=== PATIENT | female | born 1985 ===

== ENCOUNTER 2016-04-30 22:23 | Inpatient (IN) | payer SELFPAY ==
[~2016-04-30] VITALS: Ht 160 cm; Wt 95.3 kg
[2016-04-30 23:31] VITALS: BP 138/84
[2016-05-01] MEDS ORDERED: ACETAMINOPHEN 325 MG TABLET. PO PRN (00:30)
[2016-05-01] MEDS: IV NORMAL SALINE 1000ML BAG 1,000 ML IV SCH ×2 (00:53→09:46)
[2016-05-01] MEDS ORDERED: ONDANSETRON PF 4 MG/2 ML VIAL. IV PRN (01:00)
[2016-05-01] MEDS ORDERED: VANCOMYCIN 1 GM in IV NORMAL SALINE 250ML 250 ML IV ONE (02:00)
[2016-05-01] MEDS: VANCOMYCIN PER PHARMACY MC PRN ×2 (02:22→14:46)
[2016-05-01 03:00] VITALS: BP 108/59
[2016-05-01 05:03] LABS: BASO # 0.1 x10^3/uL (0.0-0.2); BASO % 1 % (0-3); EOS % 1 % (0-3); HEMATOCRIT 29.7 % (36.0-47.0); HEMOGLOBIN 9.8 g/dL (12.0-15.5); LYMPH % 11 % (24-48); MEAN CORPUSCULAR HEMOGLOBIN 28 pg (25-35); MEAN CORPUSCULAR HGB CONC 33 g/dL (31-37); MEAN CORPUSCULAR VOLUME 86 fL (79-100); MONO % 6 % (0-9); NEUT % 81 % (31-73); PLATELET COUNT 236 x10^3/uL (140-400); RED BLOOD COUNT 3.47 x10^6/uL (3.50-5.40); RED CELL DISTRIBUTION WIDTH 13.9 % (11.5-14.5); WHITE BLOOD COUNT 17.5 x10^3/uL (4.0-11.0)
[2016-05-01 05:16] LABS: CALCIUM 8.1 mg/dL (8.5-10.1); CREATININE 0.5 mg/dL (0.6-1.0); GFR 144.9; POTASSIUM 3.6 mmol/L (3.5-5.1)
[2016-05-01] MEDS ORDERED: CLINDAMYCIN 900MG PREMIX 50 ML IV SCH (06:00)
[2016-05-01 06:50] LABS: % EOS 2 % (0-5)
[2016-05-01 06:51] LABS: PLT ESTIMATE ADEQUATE (ADEQUATE)
[2016-05-01 07:05] VITALS: BP 119/62
--- NOTE | 2016-05-01 09:29 | PDOC1 ---
History and Physical Past Medical History Past Medical History cellulitis Past Surgical History Past Surgical History: Family History Family History unknown per pt Social History Smoke: No Drugs: Other (meth) Current Medications Current Medications Current Medications Medications (Trade) Dose Ordered Sig/Sarah Start Time Stop Time Status Last Admin Dose Admin Acetaminophen 650 mg 650 mg PRN Q6HRS PRN 05/01/16 00:30 Clindamycin Phosphate 50 ml @ 100 mls/hr Q8HRS 05/01/16 06:00 05/01/16 05:12 100 MLS/HR Diphenhydramine HCl 50 mg 50 mg PRN Q8HRS PRN 05/01/16 01:00 Ondansetron HCl (Zofran) 4 mg PRN Q6HRS PRN 05/01/16 01:00 Sodium Chloride (Iv Sodium Chloride 0.9% 1000ml Bag) 1,000 ml @ 75 mls/hr [id number] 05/01/16 01:00 05/01/16 00:53 75 MLS/HR Vancomycin HCl 1 each 1X ONCE 05/02/16 09:30 05/02/16 09:31 Vancomycin HCl 1 each 1 each PRN DAILY PRN 05/01/16 02:00 05/01/16 02:22 1 EACH Vancomycin HCl 1 gm/Sodium Chloride 250 ml @ 250 mls/hr ONCE ONCE 05/01/16 02:00 05/01/16 02:07 DC Vancomycin HCl/ Sodium Chloride (Iv Sodium Chloride 0.9% 250ml) 250 ml @ 250 mls/hr Q12H 05/01/16 10:00 UNV Vancomycin HCl/ Sodium Chloride (Iv Sodium Chloride 0.9% 500ml Bag) 500 ml @ 250 mls/hr Q12H 05/01/16 10:00 Allergies Allergies Allergies Coded Allergies Type Severity Reaction Last Updated Verified No Known Medication Allergies Allergy Unknown 05/01/16 Yes ROS Review of System CONSTITUTIONAL: No fever or chills EYES: No recent changes SKIN: LLE rash and pain CARDIOVASCULAR: No chest pain, syncope, palpitations, or edema RESPIRATORY: No SOB or cough GASTROINTESTINAL: No nausea, vomiting or abdominal pain NEUROLOGICAL: No headaches or weakness ENDOCRINE: No cold or heat intolerance GENITOURINARY: No urgency or frequency of urination MUSCULOSKELETAL: No back pain or joint pain LYMPHATICS: No enlarged lymph nodes PSYCHIATRIC: No anxiety or depression Physical Exam Physical Exam GEN.: No apparent distress. Alert and oriented. HEENT: Head is normocephalic, atraumatic NECK: Supple. no JVD LUNGS: Clear to auscultation. normal airflow HEART: RRR, S1, S2 present. Peripheral pulses intact ABDOMEN: Soft, nontender. Positive bowel sounds. EXTREMITIES: LLE rash with blisters on medial aspect of ankle and lower leg, NEUROLOGIC: Normal speech, normal tone PSYCHIATRIC: Normal affect, normal mood. SKIN: erythema and blisters on LLE, swelling. Vitals Vitals Vital Signs Date Time Temp Pulse Resp B/P Pulse Ox O2 Delivery O2 Flow Rate FiO2 05/01/16 07:05 98.1 94 18 119/62 99 Room Air 98.1 Labs Labs Laboratory Tests Test 05/01/16 04:45 White Blood Count 17.5x10^3/uL (4.0-11.0) Red Blood Count 3.47x10^6/uL (3.50-5.40) Hemoglobin 9.8g/dL (12.0-15.5) Hematocrit 29.7% (36.0-47.0) Mean Corpuscular Volume 86fL (79-100) Mean Corpuscular Hemoglobin 28pg (25-35) Mean Corpuscular Hemoglobin Concent 33g/dL (31-37) Red Cell Distribution Width 13.9% (11.5-14.5) Platelet Count 236x10^3/uL (140-400) Neutrophils (%) (Auto) 81% (31-73) Lymphocytes (%) (Auto) 11% (24-48) Monocytes (%) (Auto) 6% (0-9) Eosinophils (%) (Auto) 1% (0-3) Basophils (%) (Auto) 1% (0-3) Neutrophils # (Auto) 14.1x10^3uL (1.8-7.7) Lymphocytes # (Auto) 2.0x10^3/uL (1.0-4.8) Monocytes # (Auto) 1.0x10^3/uL (0.0-1.1) Eosinophils # (Auto) 0.3x10^3/uL (0.0-0.7) Basophils # (Auto) 0.1x10^3/uL (0.0-0.2) Segmented Neutrophils % 80% (35-66) Band Neutrophils % 7% (0-9) Lymphocytes % 9% (24-48) Monocytes % 2% (0-10) Eosinophils % 2% (0-5) Platelet Estimate Adequate (ADEQUATE) Erythrocyte Sedimentation Rate 67 (0-25) Sodium Level 139mmol/L (136-145) Potassium Level 3.6mmol/L (3.5-5.1) Chloride Level 105mmol/L (98-107) Carbon Dioxide Level 25mmol/L (21-32) Anion Gap 9 (6-14) Blood Urea Nitrogen 5mg/dL (7-20) Creatinine 0.5mg/dL (0.6-1.0) Estimated GFR (Cockcroft-Gault) 144.9 Glucose Level 91mg/dL (70-99) Calcium Level 8.1mg/dL (8.5-10.1) Laboratory Tests Test 05/01/16 04:45 White Blood Count 17.5x10^3/uL (4.0-11.0) Red Blood Count 3.47x10^6/uL (3.50-5.40) Hemoglobin 9.8g/dL (12.0-15.5) Hematocrit 29.7% (36.0-47.0) Mean Corpuscular Volume 86fL (79-100) Mean Corpuscular Hemoglobin 28pg (25-35) Mean Corpuscular Hemoglobin Concent 33g/dL (31-37) Red Cell Distribution Width 13.9% (11.5-14.5) Platelet Count 236x10^3/uL (140-400) Neutrophils (%) (Auto) 81% (31-73) Lymphocytes (%) (Auto) 11% (24-48) Monocytes (%) (Auto) 6% (0-9) Eosinophils (%) (Auto) 1% (0-3) Basophils (%) (Auto) 1% (0-3) Neutrophils # (Auto) 14.1x10^3uL (1.8-7.7) Lymphocytes # (Auto) 2.0x10^3/uL (1.0-4.8) Monocytes # (Auto) 1.0x10^3/uL (0.0-1.1) Eosinophils # (Auto) 0.3x10^3/uL (0.0-0.7) Basophils # (Auto) 0.1x10^3/uL (0.0-0.2) Segmented Neutrophils % 80% (35-66) Band Neutrophils % 7% (0-9) Lymphocytes % 9% (24-48) Monocytes % 2% (0-10) Eosinophils % 2% (0-5) Platelet Estimate Adequate (ADEQUATE) Erythrocyte Sedimentation Rate 67 (0-25) Sodium Level 139mmol/L (136-145) Potassium Level 3.6mmol/L (3.5-5.1) Chloride Level 105mmol/L (98-107) Carbon Dioxide Level 25mmol/L (21-32) Anion Gap 9 (6-14) Blood Urea Nitrogen 5mg/dL (7-20) Creatinine 0.5mg/dL (0.6-1.0) Estimated GFR (Cockcroft-Gault) 144.9 Glucose Level 91mg/dL (70-99) Calcium Level 8.1mg/dL (8.5-10.1) VTE Prophylaxis Ordered VTE Prophylaxis Devices: Yes VTE Pharmacological Prophylaxi: Yes ASAD SOLER MD May 01, 2016 09:29
[2016-05-01] MEDS: VANCOMYCIN 2 GM in IV NORMAL SALINE 500ML BAG 500 ML IV SCH ×2 (09:45→21:07)
--- NOTE | 2016-05-01 09:49 | PDOC ---
Infectious Disease Note Subjective Subjective Patient presents to [facility] after 1 week history of left LE cellulitis. She had been seen in [place] and was given a prescription for an antibiotic. She stated the infection was clearing up, but then 2 days ago it worsened. At the ED it was swollen, red and painful. I&D was performed and she was started on clindamycin and vanc. This morning she is resting comfortably in bed with her leg elevated. She denies fever, chills. ROS ROS GEN: Denies fevers, chills, sweats HEENT: Denies blurred vision, sore throat CV: Denies chest pain RESP: Denies shortness of air, cough GI: Denies n/v/d NEURO: Denies confusion, dizziness MSK: Denies weakness, joint pain/swelling Vital Sign Vital Signs Vital Signs Date Time Temp Pulse Resp B/P Pulse Ox O2 Delivery O2 Flow Rate FiO2 05/01/16 07:05 98.1 94 18 119/62 99 Room Air 98.1 Physical Exam PHYSICAL EXAM GENERAL: NAD, Alert HEENT: PERRL, OC/OP NECK: Supple, no JVD, no LN LUNGS: Clear HEART: S1S2, no gallop, no murmur ABD: Soft, NT, no organomegaly, no rebound EXT: L LE 2+ edema, erythematous, bandage over I&D site on knee - bloody drainage [employer]: Alert, oriented x 3, no focal neurologic deficit SKIN: erythema, edema over L LE IV: ok Labs Lab Laboratory Tests Test 05/01/16 04:45 White Blood Count 17.5x10^3/uL (4.0-11.0) Red Blood Count 3.47x10^6/uL (3.50-5.40) Hemoglobin 9.8g/dL (12.0-15.5) Hematocrit 29.7% (36.0-47.0) Mean Corpuscular Volume 86fL (79-100) Mean Corpuscular Hemoglobin 28pg (25-35) Mean Corpuscular Hemoglobin Concent 33g/dL (31-37) Red Cell Distribution Width 13.9% (11.5-14.5) Platelet Count 236x10^3/uL (140-400) Neutrophils (%) (Auto) 81% (31-73) Lymphocytes (%) (Auto) 11% (24-48) Monocytes (%) (Auto) 6% (0-9) Eosinophils (%) (Auto) 1% (0-3) Basophils (%) (Auto) 1% (0-3) Neutrophils # (Auto) 14.1x10^3uL (1.8-7.7) Lymphocytes # (Auto) 2.0x10^3/uL (1.0-4.8) Monocytes # (Auto) 1.0x10^3/uL (0.0-1.1) Eosinophils # (Auto) 0.3x10^3/uL (0.0-0.7) Basophils # (Auto) 0.1x10^3/uL (0.0-0.2) Segmented Neutrophils % 80% (35-66) Band Neutrophils % 7% (0-9) Lymphocytes % 9% (24-48) Monocytes % 2% (0-10) Eosinophils % 2% (0-5) Platelet Estimate Adequate (ADEQUATE) Erythrocyte Sedimentation Rate 67 (0-25) Sodium Level 139mmol/L (136-145) Potassium Level 3.6mmol/L (3.5-5.1) Chloride Level 105mmol/L (98-107) Carbon Dioxide Level 25mmol/L (21-32) Anion Gap 9 (6-14) Blood Urea Nitrogen 5mg/dL (7-20) Creatinine 0.5mg/dL (0.6-1.0) Estimated GFR (Cockcroft-Gault) 144.9 Glucose Level 91mg/dL (70-99) Calcium Level 8.1mg/dL (8.5-10.1) Objective Assessment Left lower extremity cellulitis Left knee abscess/patellar bursitis Leukocytosis Plan Plan of Care D/c clinda Cont vanc Add Unasyn Leg elevation MINH MANCUSO MD May 01, 2016 09:49
[2016-05-01] MEDS ORDERED: VANCOMYCIN 1 GM in IV NORMAL SALINE 250ML 250 ML IV SCH (10:00)
[2016-05-01 10:15] VITALS: BP 122/70
--- NOTE | 2016-05-01 10:39 | PDOC2 ---
CONSULT Date of Consult Date of Consult DATE: 05/01/16 TIME: 10:28 Reason for Consult Reason for Consult: with cellulitis Referring Physician Referring Physician: Dr. Jolly Identification/Chief Complaint Chief Complaint Leg swelling with redness Source Source: Chart review, Patient History of Present Illness Reason for Visit: 31 y/o @ 8wks by [facility] in [place]. She presented to ED a few days ago with leg swelling. She was treated as outpatient with abx for cellulitis. The swelling worsened with redness so patient returned to ED. Previous c/s x 4. No care. She denies any injury or trauma to her leg. Past Surgical History Past Surgical History: (x4) Social History <1 pack per day ALCOHOL: rare Drugs: Other (meth) Domestic Violence: Neg Current Medications Current Medications Current Medications Acetaminophen 650 mg 650 mg PRN Q6HRS PRN PO MILD PAIN / TEMP; Start 05/01/16 at 00:30 Clindamycin Phosphate 50 ml @ 100 mls/hr Q8HRS IV Last administered on 05:12; Start 05/01/16 at 06:00; Stop 05/01/16 at 09:49; Status DC Vancomycin HCl/ Sodium Chloride (Iv Sodium Chloride 0.9% 250ml) 250 ml @ 250 mls/hr Q12H IV ; Start 05/01/16 at 10:00; Status UNV Diphenhydramine HCl 50 mg 50 mg PRN Q8HRS PRN IVP ITCHING; Start 05/01/16 at 01 :00 Sodium Chloride (Iv Sodium Chloride 0.9% 1000ml Bag) 1,000 ml @ 75 mls/hr [id number] IV Last administered on 05/01/16 09:46; Start 05/01/16 at 01:00 Ondansetron HCl (Zofran) 4 mg PRN Q6HRS PRN IV NAUSEA/VOMITING; Start 05/01/16 at 01:00 Vancomycin HCl 1 each 1 each PRN DAILY PRN MC SEE COMMENTS Last administered on 05/01/16 02:22; Start 05/01/16 at 02:00 Vancomycin HCl 1 gm/Sodium Chloride 250 ml @ 250 mls/hr ONCE ONCE IV ; Start 05/01/16 at 02:00; Stop 05/01/16 at 02:07; Status DC Vancomycin HCl/ Sodium Chloride (Iv Sodium Chloride 0.9% 500ml Bag) 500 ml @ 250 mls/hr Q12H IV Last administered on 05/01/16t 09:45; Start 05/01/16 at 10: 00 Vancomycin HCl 1 each 1 each 1X ONCE MC ; Start 05/02/16 at 09:30; Stop at 09:31 Ampicillin Sodium/ Sulbactam Sodium/ Sodium Chloride (Unasyn/Iv Sodium Chloride 0.9% 100ml) 100 ml @ 200 mls/hr Q6HRS IV ; Start 05/01/16 at 11:00 Enoxaparin Sodium (Lovenox 40mg Syringe) 40 mg DAILY SQ ; Start 05/01/16 at 12: 00 Allergies Allergies: Coded Allergies: No Known Medication Allergies (Verified Allergy, Unknown, 05/01/16) ROS General: YES: Fatigue, No: Appetite, Chills, Malaise, Night Sweats, Other PSYCHOLOGICAL ROS: No: Anxiety, Behavioral Disorder, Concentration difficultie , Decreased libido, Depression, Disorientation, Hallucinations, Hostility, Irritablity, Memory difficulties, Mood Swings, Obsessive thoughts, Other, Physical abuse, Sexual abuse, Sleep disturbances, Suicidal ideation Eyes: No Blurry vision, No Decreased vision, No Double vision, No Dry eyes, No Excessive tearing, No Eye Pain, No Itchy Eyes, No Loss of vision, No Other, No Photophobia, No Scotomata, No Uses contacts, No Uses glasses HEENT: No: Epistaxis, Heacaches, Hearing change, Nasal congestion, Nasal discharge, Oral lesions, Other, Sinus pain, Sneezing, Snoring, Sore Throat, Tinnitus, Vertigo, Visual Changes, Vocal changes ALLERGY AND IMMUNOLOGY: No: Hives, Insect Bite Sensitivity, Itchy/Watery Eyes, Nasal Congestion, Other, Post Nasal Drip, Seasonal Allergies Hematological and Lymphatic: No: Bleeding Problems, Blood Clots, Blood Transfusions, Brusing, Night Sweats, Other, Pallor, Swollen Lymph Nodes ENDOCRINE: No: Breast Changes, Galactorrhea, Hair Pattern Changes, Hot Flashes , Malaise/lethargy, Mood Swings, Other, Palpitations, Polydipsia/polyuria, Skin Changes, Temperature Intolerance, Unexpected Weight Changes Breast: No New/Changing Breast Lumps, No Nipple changes, No Nipple discharge, No Other Respiratory: No: Cough, Hemoptysis, Orthopnea, Other, Pleuritic Pain, SOB with excertion, Shortness of breath, Sputum Changes, Stridor, Tachypnea, Wheezing Cardiovascular: No Chest Pain, No Edema, No Lt Headedness, No Orthopnea, No Other, No Palpitations, No Paroxysmal Noc. Dyspnea Gastrointestinal: No Abdominal Pain, No Constipation, No Diarrhea, No Hematochezia, No Melena, No Nausea, No Other, No Vomiting Genitourinary: No , No , No , No , No , No , No , No Discharge, No Dysuria, No Flank Pain, No Frequency, No Hematuria, No Incontinence, No Other, No Pain, No Retention, No Urgency Musculoskeletal: Yes Gait Disturbance, Yes Swelling In: (Left lower leg and knee) Physical Exam General: Alert, Oriented X3, Cooperative HEENT: Atraumatic Lungs: Clear to auscultation Heart: Regular rate Abdomen: Normal bowel sounds, Soft, No tenderness, No masses Extremities: Other (Severe edema with evidence of cellulitis in Left lower leg. Left knee with I&D by ED physician with bandage in place. Erythema demarcated above calf but below knee. Right knee and leg normal.) Vitals VITALS Vital Signs Date Time Temp Pulse Resp B/P Pulse Ox O2 Delivery O2 Flow Rate FiO2 05/01/16 07:05 98.1 94 18 119/62 99 Room Air 98.1 Labs Labs Laboratory Tests Test 05/01/16 04:45 White Blood Count 17.5x10^3/uL (4.0-11.0) Red Blood Count 3.47x10^6/uL (3.50-5.40) Hemoglobin 9.8g/dL (12.0-15.5) Hematocrit 29.7% (36.0-47.0) Mean Corpuscular Volume 86fL (79-100) Mean Corpuscular Hemoglobin 28pg (25-35) Mean Corpuscular Hemoglobin Concent 33g/dL (31-37) Red Cell Distribution Width 13.9% (11.5-14.5) Platelet Count 236x10^3/uL (140-400) Neutrophils (%) (Auto) 81% (31-73) Lymphocytes (%) (Auto) 11% (24-48) Monocytes (%) (Auto) 6% (0-9) Eosinophils (%) (Auto) 1% (0-3) Basophils (%) (Auto) 1% (0-3) Neutrophils # (Auto) 14.1x10^3uL (1.8-7.7) Lymphocytes # (Auto) 2.0x10^3/uL (1.0-4.8) Monocytes # (Auto) 1.0x10^3/uL (0.0-1.1) Eosinophils # (Auto) 0.3x10^3/uL (0.0-0.7) Basophils # (Auto) 0.1x10^3/uL (0.0-0.2) Segmented Neutrophils % 80% (35-66) Band Neutrophils % 7% (0-9) Lymphocytes % 9% (24-48) Monocytes % 2% (0-10) Eosinophils % 2% (0-5) Platelet Estimate Adequate (ADEQUATE) Erythrocyte Sedimentation Rate 67 (0-25) Sodium Level 139mmol/L (136-145) Potassium Level 3.6mmol/L (3.5-5.1) Chloride Level 105mmol/L (98-107) Carbon Dioxide Level 25mmol/L (21-32) Anion Gap 9 (6-14) Blood Urea Nitrogen 5mg/dL (7-20) Creatinine 0.5mg/dL (0.6-1.0) Estimated GFR (Cockcroft-Gault) 144.9 Glucose Level 91mg/dL (70-99) Calcium Level 8.1mg/dL (8.5-10.1) Laboratory Tests Test 05/01/16 04:45 White Blood Count 17.5x10^3/uL (4.0-11.0) Red Blood Count 3.47x10^6/uL (3.50-5.40) Hemoglobin 9.8g/dL (12.0-15.5) Hematocrit 29.7% (36.0-47.0) Mean Corpuscular Volume 86fL (79-100) Mean Corpuscular Hemoglobin 28pg (25-35) Mean Corpuscular Hemoglobin Concent 33g/dL (31-37) Red Cell Distribution Width 13.9% (11.5-14.5) Platelet Count 236x10^3/uL (140-400) Neutrophils (%) (Auto) 81% (31-73) Lymphocytes (%) (Auto) 11% (24-48) Monocytes (%) (Auto) 6% (0-9) Eosinophils (%) (Auto) 1% (0-3) Basophils (%) (Auto) 1% (0-3) Neutrophils # (Auto) 14.1x10^3uL (1.8-7.7) Lymphocytes # (Auto) 2.0x10^3/uL (1.0-4.8) Monocytes # (Auto) 1.0x10^3/uL (0.0-1.1) Eosinophils # (Auto) 0.3x10^3/uL (0.0-0.7) Basophils # (Auto) 0.1x10^3/uL (0.0-0.2) Segmented Neutrophils % 80% (35-66) Band Neutrophils % 7% (0-9) Lymphocytes % 9% (24-48) Monocytes % 2% (0-10) Eosinophils % 2% (0-5) Platelet Estimate Adequate (ADEQUATE) Erythrocyte Sedimentation Rate 67 (0-25) Sodium Level 139mmol/L (136-145) Potassium Level 3.6mmol/L (3.5-5.1) Chloride Level 105mmol/L (98-107) Carbon Dioxide Level 25mmol/L (21-32) Anion Gap 9 (6-14) Blood Urea Nitrogen 5mg/dL (7-20) Creatinine 0.5mg/dL (0.6-1.0) Estimated GFR (Cockcroft-Gault) 144.9 Glucose Level 91mg/dL (70-99) Calcium Level 8.1mg/dL (8.5-10.1) Assessment/Plan Assessment/Plan A: 8wks IUP Left lower leg cellulitis P: Continue IV abx as benefit greater than risk to . Recommend surgery and vascular consultation. Recommend doppler evaluation for blood flow and rule out DVT. Will continue to follow. HEIDE MCCORMACK Jr, MD May 01, 2016 10:39
--- NOTE | 2016-05-01 10:39 | HP ---
ADMIT DATE: 05/01/2016 CHIEF COMPLAINT: Left lower extremity rash, pain and swelling. HISTORY OF PRESENT ILLNESS: A 31-year-old female with history of substance abuse (meth) presented to the [facility] with complaints of left lower extremity cellulitis, worsening pain and increased redness. Reportedly, the patient was treated with antibiotics 1 week ago, the patient did not recall the antibiotic's name, she says its name starts with C. However, her symptoms did not improve, the redness and swelling is gradually getting worse. She was evaluated at [facility] and she had a left lower extremity knee I and D as per the patient and later the patient has been transferred to [facility] for further consultation and antibiotics. At the time of my examination this morning, the patient complains of left lower extremity pain and redness that started from the feet to below knee with blister formation in the medial aspect of the left lower extremity. She denies any fever or chills or sick contacts. She did have some breakdowns of skin under both sides of the feet. She denies any IV drug abuse. She denies any surgeries on her lower extremities in the past. PAST MEDICAL HISTORY: Please see my electronic H and P. REVIEW OF SYSTEMS: Please see my electronic H and P. PHYSICAL EXAMINATION: Please see my electronic H and P. LABORATORY FINDINGS: WBC 17.5, hemoglobin is 9.8, MCV 86, platelets 236. ESR is 67. Chemistry: Sodium is 139, potassium 3.6, chloride 105, carbon dioxide 25, anion gap 9, BUN 5, creatinine 0.5, EGFR 144. IMAGING STUDIES: Reviewed from [facility], ultrasound, lower extremity Doppler negative. ASSESSMENT: Severe left lower extremity cellulitis with blistering formation, leukocytosis, elevated ESR and CRP. PLAN: 1. Currently this patient is on vancomycin and clindamycin. Pharmacy to dose the vancomycin, renal dosing. 2. Monitor white blood count. 3. Pain control with hydrocodone and Tylenol. 4. Infectious Disease has been consulted. 5. Follow cultures from [facility]. 6. Antibiotics have been adjusted by Infectious Disease and Unasyn has been added today. 7. Deep venous thrombosis prophylaxis with Lovenox. 8. Prognosis, guarded. ASAD SOLER MD DR: NEYMAR/sherry JOB#: [id number] / [id number]
[2016-05-01] MEDS: ASPIRIN ENTERIC COATED 81 MG TABLET.DR. PO SCH (11:32)
[2016-05-01] MEDS: DO NOT USE 40 MG/0.4 ML DISP.SYRIN SQ SCH (11:32)
[2016-05-01] MEDS: AMPICILLIN/SULBACTAM 3 GM in IV NORMAL SALINE 100ML 100 ML IV SCH ×2 (11:32→17:38)
--- NOTE | 2016-05-01 12:15 | RAD ---
EXAM: Left lower extremity venous Doppler sonogram. HISTORY: Swelling. TECHNIQUE: Grayscale and color Doppler sonographic imaging of the left lower extremity veins with spectral waveform analysis was performed. COMPARISON: None. FINDINGS: There is catheter edema possibly due to cellulitis. The peroneal veins are obscured. There is normal color flow, normal compressibility and there are normal spectral waveforms within the remainder of the left lower 70 veins. There are prominent lymph nodes within the right inguinal region, likely reactive given a history of a left knee abscess. IMPRESSION: Obscured peroneal veins due to calf edema. There is no evidence of venous thrombosis within the remainder of the left lower extremity veins.
--- NOTE | 2016-05-01 12:15 | RAD ---
EXAM: Left lower extremity arterial Doppler sonogram. HISTORY: Swelling and pain. TECHNIQUE: Grayscale and color Doppler sonographic imaging of the left lower 70 arteries with spectral waveform analysis was performed. COMPARISON: None. FINDINGS: There is an elevated peak systolic velocity of 269 cm/s within the right common femoral artery, suggesting hemodynamically significant stenosis. There are monophasic waveforms distal to the common femoral artery from the proximal superficial femoral artery to the dorsalis pedis artery, likely due to proximal stenosis. The peak systolic velocities distal to the common femoral artery measure 66 cm/s within the deep femoral artery, 182 cm/s within the proximal superficial femoral artery, 156 cm/s within the mid superficial femoral artery, 142 cm/s within the distal superficial femoral artery, 171 cm/s within the popliteal artery, 147 cm/s within the posterior tibial artery, 80 cm/s within the anterior tibial artery, and 115 cm/s within the dorsalis pedis artery. The peroneal artery is not seen. IMPRESSION: 1. Elevated peak systolic velocity within the left common femoral artery suggesting hemodynamically significant stenosis. There are corresponding monophasic waveforms distal to this vessel from the proximal superficial femoral artery to the dorsalis pedis artery. 2. Nonvisualization of the peroneal artery. This may be due to study limitations in the setting of surrounding soft tissue edema or vessel occlusion.
[2016-05-01 14:20] VITALS: BP 118/73
[2016-05-01 19:00] VITALS: BP 129/68
[2016-05-01] MEDS: DIPHENHYDRAMINE 50 MG/ML VIAL IVP PRN (21:08)
[2016-05-01 23:00] VITALS: BP 142/61
[2016-05-02] MEDS: AMPICILLIN/SULBACTAM 3 GM in IV NORMAL SALINE 100ML 100 ML IV SCH ×2 (00:25→05:20)
[2016-05-02] MEDS: IV NORMAL SALINE 1000ML BAG 1,000 ML IV SCH (01:36)
[2016-05-02 07:00] VITALS: BP 126/71
--- NOTE | 2016-05-02 07:56 | PDOC ---
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 Pharmacy to dose vancomycin, renal dosing OBEGYN following. Vascular surgery consulted Pain control with IV morphine labs reviewed Avoid co2 narcosis. History of Present Illness History of Present Illness pain better no fever no chills rash worse Vitals Vitals Vital Signs Date Time Temp Pulse Resp B/P Pulse Ox O2 Delivery O2 Flow Rate FiO2 05/02/16 07:00 98.4 103 18 126/71 97 Room Air 98.4 Physical Exam General: Alert, Oriented X3, Cooperative Heart: Regular rate, Normal S1, Normal S2 Abdomen: Normal bowel sounds, Soft, No tenderness, No masses Extremities: Other (Severe edema with evidence of cellulitis in Left lower leg. Left knee with I&D by ED physician with bandage in place. Erythema demarcated above calf but below knee. Right knee and leg normal.) Comment Review of Relevant I have reviewed the following items toby (where applicable) has been applied. Labs Laboratory Tests Test 05/01/16 04:45 White Blood Count 17.5x10^3/uL (4.0-11.0) Red Blood Count 3.47x10^6/uL (3.50-5.40) Hemoglobin 9.8g/dL (12.0-15.5) Hematocrit 29.7% (36.0-47.0) Mean Corpuscular Volume 86fL (79-100) Mean Corpuscular Hemoglobin 28pg (25-35) Mean Corpuscular Hemoglobin Concent 33g/dL (31-37) Red Cell Distribution Width 13.9% (11.5-14.5) Platelet Count 236x10^3/uL (140-400) Neutrophils (%) (Auto) 81% (31-73) Lymphocytes (%) (Auto) 11% (24-48) Monocytes (%) (Auto) 6% (0-9) Eosinophils (%) (Auto) 1% (0-3) Basophils (%) (Auto) 1% (0-3) Neutrophils # (Auto) 14.1x10^3uL (1.8-7.7) Lymphocytes # (Auto) 2.0x10^3/uL (1.0-4.8) Monocytes # (Auto) 1.0x10^3/uL (0.0-1.1) Eosinophils # (Auto) 0.3x10^3/uL (0.0-0.7) Basophils # (Auto) 0.1x10^3/uL (0.0-0.2) Segmented Neutrophils % 80% (35-66) Band Neutrophils % 7% (0-9) Lymphocytes % 9% (24-48) Monocytes % 2% (0-10) Eosinophils % 2% (0-5) Platelet Estimate Adequate (ADEQUATE) Erythrocyte Sedimentation Rate 67 (0-25) Sodium Level 139mmol/L (136-145) Potassium Level 3.6mmol/L (3.5-5.1) Chloride Level 105mmol/L (98-107) Carbon Dioxide Level 25mmol/L (21-32) Anion Gap 9 (6-14) Blood Urea Nitrogen 5mg/dL (7-20) Creatinine 0.5mg/dL (0.6-1.0) Estimated GFR (Cockcroft-Gault) 144.9 Glucose Level 91mg/dL (70-99) Calcium Level 8.1mg/dL (8.5-10.1) Medications Current Medications Acetaminophen 650 mg 650 mg PRN Q6HRS PRN PO MILD PAIN / TEMP; Start 05/01/16 at 00:30 Clindamycin Phosphate 50 ml @ 100 mls/hr Q8HRS IV Last administered on 05:12; Start 05/01/16 at 06:00; Stop 05/01/16 at 09:49; Status DC Vancomycin HCl/ Sodium Chloride (Iv Sodium Chloride 0.9% 250ml) 250 ml @ 250 mls/hr Q12H IV ; Start 05/01/16 at 10:00; Status UNV Diphenhydramine HCl 50 mg 50 mg PRN Q8HRS PRN IVP ITCHING Last administered on 05/01/16 21:08; Start 05/01/16 at 01:00 Sodium Chloride (Iv Sodium Chloride 0.9% 1000ml Bag) 1,000 ml @ 75 mls/hr [id number] IV Last administered on 05/02/16 01:36; Start 05/01/16 at 01:00 Ondansetron HCl (Zofran) 4 mg PRN Q6HRS PRN IV NAUSEA/VOMITING; Start 05/01/16 at 01:00 Vancomycin HCl 1 each 1 each PRN DAILY PRN MC SEE COMMENTS Last administered on 05/01/16 14:46; Start 05/01/16 at 02:00 Vancomycin HCl 1 gm/Sodium Chloride 250 ml @ 250 mls/hr ONCE ONCE IV ; Start 05/01/16 at 02:00; Stop 05/01/16 at 02:07; Status DC Vancomycin HCl/ Sodium Chloride (Iv Sodium Chloride 0.9% 500ml Bag) 500 ml @ 250 mls/hr Q12H IV Last administered on 05/01/16 21:07; Start 05/01/16 at 10: 00 Vancomycin HCl 1 each 1 each 1X ONCE MC ; Start 05/02/16 at 09:30; Stop at 09:31 Ampicillin Sodium/ Sulbactam Sodium/ Sodium Chloride (Unasyn/Iv Sodium Chloride 0.9% 100ml) 100 ml @ 200 mls/hr Q6HRS IV Last administered on 05/02/16 05:20 ; Start 05/01/16 at 11:00 Enoxaparin Sodium (Lovenox 40mg Syringe) 40 mg DAILY SQ Last administered on 11:32; Start 05/01/16 at 12:00 Aspirin (Ecotrin) 81 mg [id number] PO Last administered on 05/01/16 11:32; Start 05/01/16 at 12:00 Vitals/I & O Vital Sign - Last 24 Hours 05/01/16 05/01/16 05/01/16 05/01/16 08:00 10:15 14:20 19:00 Temp 97.3 98.5 99.1 97.3 98.5 99.1 Pulse 98 99 105 Resp 18 18 18 B/P 122/70 118/73 129/68 Pulse Ox 100 100 97 O2 Delivery Room Air Room Air Room Air Room Air 05/01/16 05/01/16 05/02/16 05/02/16 20:00 23:00 01:00 07:00 Temp 99.9 97.7 98.4 99.9 97.7 98.4 Pulse 109 103 Resp 18 18 B/P 142/61 126/71 Pulse Ox 97 97 O2 Delivery Room Air Room Air Room Air Intake and Output 05/01/16 05/01/16 05/02/16 15:00 23:00 07:00 Intake Total 780 ml 280 ml 360 ml Balance 780 ml 280 ml 360 ml ASAD SOLER MD May 02, 2016 07:56
--- NOTE | 2016-05-02 09:37 | PDOC ---
Infectious Disease Note Subjective Subjective feeling ok ROS ROS GEN: Denies fevers, chills, sweats HEENT: Denies blurred vision, sore throat CV: Denies chest pain RESP: Denies shortness of air, cough GI: Denies n/v/d NEURO: Denies confusion, dizziness MSK: Denies weakness, joint pain/swelling Vital Sign Vital Signs Vital Signs Date Time Temp Pulse Resp B/P Pulse Ox O2 Delivery O2 Flow Rate FiO2 05/02/16 07:00 98.4 103 18 126/71 97 Room Air 98.4 Physical Exam PHYSICAL EXAM GENERAL: NAD, Alert HEENT: PERRL, OC/OP NECK: Supple, no JVD, no LN LUNGS: Clear HEART: S1S2, no gallop, no murmur ABD: Soft, NT, no organomegaly, no rebound EXT: No edema, no cyanosis , left leg red and swollen [employer] MUD ANALYSIS: Alert, oriented x 3, no focal neurologic deficit SKIN: No rash IV: ok Objective Assessment Left lower extremity cellulitis Left knee abscess/patellar bursitis Leukocytosis Plan Plan of Care Cont vanc change unasyn to zosyn Leg elevation MINH MANCUSO MD May 02, 2016 09:37
[2016-05-02] MEDS: DO NOT USE 40 MG/0.4 ML DISP.SYRIN SQ SCH (09:53)
[2016-05-02] MEDS: ASPIRIN ENTERIC COATED 81 MG TABLET.DR. PO SCH (09:53)
[2016-05-02 10:17] LABS: BASO # 0.1 x10^3/uL (0.0-0.2); BASO % 0 % (0-3); EOS % 1 % (0-3); HEMATOCRIT 32.4 % (36.0-47.0); LYMPH # 1.8 x10^3/uL (1.0-4.8); LYMPH % 7 % (24-48); MEAN CORPUSCULAR HEMOGLOBIN 28 pg (25-35); MEAN CORPUSCULAR HGB CONC 34 g/dL (31-37); MEAN CORPUSCULAR VOLUME 84 fL (79-100); MONO % 4 % (0-9); NEUT % 88 % (31-73); PLATELET COUNT 279 x10^3/uL (140-400); RED BLOOD COUNT 3.87 x10^6/uL (3.50-5.40); RED CELL DISTRIBUTION WIDTH 13.7 % (11.5-14.5); WHITE BLOOD COUNT 26.4 x10^3/uL (4.0-11.0)
[2016-05-02 10:24] LABS: CALCIUM 8.1 mg/dL (8.5-10.1); CREATININE 0.7 mg/dL (0.6-1.0); GFR 98.3; POTASSIUM 3.7 mmol/L (3.5-5.1)
[2016-05-02] MEDS: VANCOMYCIN PER PHARMACY MC PRN (10:40)
[2016-05-02] MEDS ORDERED: VANCOMYCIN 1.75 GM in IV NORMAL SALINE 500ML BAG 500 ML IV SCH (11:00)
[2016-05-02 11:08] VITALS: BP 121/64
[2016-05-02] MEDS: PIPERACILLIN/TAZOBACTAM 3.375 GM in IV NORMAL SALINE 50ML 50 ML IV SCH ×2 (11:54→17:29)
--- NOTE | 2016-05-02 12:19 | PDOC ---
SURGICAL PROGRESS NOTE Subjective Pt. reports rash worsening on leg and chest area. No CP, SOB, abd pain, vaginal bleeding, chills or fever. Discussed findings from doppler studies and consultation of general surgery and vascular surgery. Vital Signs Vital Signs Date Time Temp Pulse Resp B/P Pulse Ox O2 Delivery O2 Flow Rate FiO2 05/02/16 11:08 97.7 113 18 121/64 100 Room Air 97.7 I&O Intake and Output 05/02/16 07:00 Intake Total 1420 ml Balance 1420 ml Intake Oral 720 ml IV Total 700 ml # Voids 5 PATIENT HAS A MISTRY: No General: Alert, Oriented X3, Cooperative HEENT: Atraumatic Lungs: Clear to auscultation Heart: Regular rate Abdomen: Normal bowel sounds, Soft, No tenderness, No masses Extremities: Other (Severe Left lower leg edema, cellulitis with exudate. Right lower extremity with +1 edema blotchy erythema on foot. Pulses palpable in Right lower extremity.) Psych/Mental Status: Mental status NL Labs Laboratory Tests Test 05/01/16 04:45 05/02/16 10:00 White Blood Count 17.5x10^3/uL (4.0-11.0) 26.4x10^3/uL (4.0-11.0) Red Blood Count 3.47x10^6/uL (3.50-5.40) 3.87x10^6/uL (3.50-5.40) Hemoglobin 9.8g/dL (12.0-15.5) 11.0g/dL (12.0-15.5) Hematocrit 29.7% (36.0-47.0) 32.4% (36.0-47.0) Mean Corpuscular Volume 86fL (79-100) 84fL (79-100) Mean Corpuscular Hemoglobin 28pg (25-35) 28pg (25-35) Mean Corpuscular Hemoglobin Concent 33g/dL (31-37) 34g/dL (31-37) Red Cell Distribution Width 13.9% (11.5-14.5) 13.7% (11.5-14.5) Platelet Count 236x10^3/uL (140-400) 279x10^3/uL (140-400) Neutrophils (%) (Auto) 81% (31-73) 88% (31-73) Lymphocytes (%) (Auto) 11% (24-48) 7% (24-48) Monocytes (%) (Auto) 6% (0-9) 4% (0-9) Eosinophils (%) (Auto) 1% (0-3) 1% (0-3) Basophils (%) (Auto) 1% (0-3) 0% (0-3) Neutrophils # (Auto) 14.1x10^3uL (1.8-7.7) 23.2x10^3uL (1.8-7.7) Lymphocytes # (Auto) 2.0x10^3/uL (1.0-4.8) 1.8x10^3/uL (1.0-4.8) Monocytes # (Auto) 1.0x10^3/uL (0.0-1.1) 1.0x10^3/uL (0.0-1.1) Eosinophils # (Auto) 0.3x10^3/uL (0.0-0.7) 0.3x10^3/uL (0.0-0.7) Basophils # (Auto) 0.1x10^3/uL (0.0-0.2) 0.1x10^3/uL (0.0-0.2) Segmented Neutrophils % 80% (35-66) Band Neutrophils % 7% (0-9) Lymphocytes % 9% (24-48) Monocytes % 2% (0-10) Eosinophils % 2% (0-5) Platelet Estimate Adequate (ADEQUATE) Erythrocyte Sedimentation Rate 67 (0-25) Sodium Level 139mmol/L (136-145) 137mmol/L (136-145) Potassium Level 3.6mmol/L (3.5-5.1) 3.7mmol/L (3.5-5.1) Chloride Level 105mmol/L (98-107) 105mmol/L (98-107) Carbon Dioxide Level 25mmol/L (21-32) 22mmol/L (21-32) Anion Gap 9 (6-14) 10 (6-14) Blood Urea Nitrogen 5mg/dL (7-20) 4mg/dL (7-20) Creatinine 0.5mg/dL (0.6-1.0) 0.7mg/dL (0.6-1.0) Estimated GFR (Cockcroft-Gault) 144.9 98.3 Glucose Level 91mg/dL (70-99) 123mg/dL (70-99) Calcium Level 8.1mg/dL (8.5-10.1) 8.1mg/dL (8.5-10.1) Vancomycin Level Trough 6.5mcg/mL (10.0-20.0) Vancomycin Last Dose Date 05/01/16 Vancomycin Last Dose Time 2200 Laboratory Tests Test 05/02/16 10:00 White Blood Count 26.4x10^3/uL (4.0-11.0) Red Blood Count 3.87x10^6/uL (3.50-5.40) Hemoglobin 11.0g/dL (12.0-15.5) Hematocrit 32.4% (36.0-47.0) Mean Corpuscular Volume 84fL (79-100) Mean Corpuscular Hemoglobin 28pg (25-35) Mean Corpuscular Hemoglobin Concent 34g/dL (31-37) Red Cell Distribution Width 13.7% (11.5-14.5) Platelet Count 279x10^3/uL (140-400) Neutrophils (%) (Auto) 88% (31-73) Lymphocytes (%) (Auto) 7% (24-48) Monocytes (%) (Auto) 4% (0-9) Eosinophils (%) (Auto) 1% (0-3) Basophils (%) (Auto) 0% (0-3) Neutrophils # (Auto) 23.2x10^3uL (1.8-7.7) Lymphocytes # (Auto) 1.8x10^3/uL (1.0-4.8) Monocytes # (Auto) 1.0x10^3/uL (0.0-1.1) Eosinophils # (Auto) 0.3x10^3/uL (0.0-0.7) Basophils # (Auto) 0.1x10^3/uL (0.0-0.2) Sodium Level 137mmol/L (136-145) Potassium Level 3.7mmol/L (3.5-5.1) Chloride Level 105mmol/L (98-107) Carbon Dioxide Level 22mmol/L (21-32) Anion Gap 10 (6-14) Blood Urea Nitrogen 4mg/dL (7-20) Creatinine 0.7mg/dL (0.6-1.0) Estimated GFR (Cockcroft-Gault) 98.3 Glucose Level 123mg/dL (70-99) Calcium Level 8.1mg/dL (8.5-10.1) Vancomycin Level Trough 6.5mcg/mL (10.0-20.0) Vancomycin Last Dose Date 05/01/16 Vancomycin Last Dose Time 2200 Assessment/Plan A: 8 wks IUP Left lower leg severe cellulitis Femoral arter stenosis P: Will continue to follow. Continue abx. Awaiting vascular and general surgery evaluation. Problems: HEIDE MCCORMACK Jr, MD May 02, 2016 12:19
[2016-05-02 12:25] LABS: % EOS 3 % (0-5); PLT ESTIMATE ADEQUATE (ADEQUATE)
--- NOTE | 2016-05-02 14:01 | PDOC2 ---
KATALINA ANGEL ACADEMIC INTERN 05/02/16 1401: CONSULT Date of Consult Date of Consult DATE: 05/02/16 TIME: 10:00 Reason for Consult Reason for Consult: Left lower extremity cellulitis Referring Physician Referring Physician: Tennille Chakraborty M.D. Identification/Chief Complaint Chief Complaint Left leg pain and cellulitis Source Source: Chart review, Patient History of Present Illness Reason for Visit: This is a 31-year-old female who presented to [facility] emergency room a little over 1 week ago with complaint of redness, swelling and pain to her left lower extremity. The patient reports that she was placed on an oral antibiotic and released. Initially, the redness did slightly improve for a few days but returned and rapidly worsened. She returned to [facility] ER and an ultrasound of the knee was performed where a collection of fluid was noted and felt to be abscess. The emergency room performed an I&D of the left knee and then the patient was transferred to [facility] for further evaluation and treatment. The patient has been seen by Infectious Disease and IV antibiotic therapy has been initiated. The patient denies injury or trauma to her left foot,knee or leg. She reports no known allergies of medications and does not take any routine medications, denies having been ill recently or around anyone who has been sick, has not traveled recently and does not work outside the home. She just found out she is 8 weeks when evaluated in the ER at [facility]. 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 She denies any symptoms of lower extremity claudication-like symptoms prior to the onset of this recent left leg pain due to cellulitis. Vascular Surgery has been consulted to evaluate for the possibility of peripheral vascular disease in association with cellulitis. Past Medical History Past Medical History 1. Tobacco abuse, current. 2. . Past Surgical History Past Surgical History 1. section x4. 2. Left knee I&D. 3. Multiple teeth extractions for poor dentation. Family History Family History Non-contributory. Social History Social History 1. Smokes approximately half-pack per day of cigarettes. 2. History of IV drug abuse with Meth - last use 1 year ago. 3. Rare consumption of alcohol. 4. and lives with her and 4 children. is supportive and just started a new job with [employer]. 5. Does not work outside the home. Current Problem List Problem List Cellulitis of the left lower extremity. Rash Current Medications Current Medications Current Medications Acetaminophen 650 mg 650 mg PRN Q6HRS PRN PO MILD PAIN / TEMP; Start 05/01/16 at 00:30 Clindamycin Phosphate 50 ml @ 100 mls/hr Q8HRS IV Last administered on 05:12; Start 05/01/16 at 06:00; Stop 05/01/16 at 09:49; Status DC Vancomycin HCl/ Sodium Chloride (Iv Sodium Chloride 0.9% 250ml) 250 ml @ 250 mls/hr Q12H IV ; Start 05/01/16 at 10:00; Status UNV Diphenhydramine HCl 50 mg 50 mg PRN Q8HRS PRN IVP ITCHING Last administered on 05/01/16 21:08; Start 05/01/16 at 01:00 Sodium Chloride (Iv Sodium Chloride 0.9% 1000ml Bag) 1,000 ml @ 75 mls/hr [id number] IV Last administered on 05/02/16 01:36; Start 05/01/16 at 01:00 Ondansetron HCl (Zofran) 4 mg PRN Q6HRS PRN IV NAUSEA/VOMITING; Start 05/01/16 at 01:00 Vancomycin HCl 1 each 1 each PRN DAILY PRN MC SEE COMMENTS Last administered on 05/02/16 10:40; Start 05/01/16 at 02:00 Vancomycin HCl 1 gm/Sodium Chloride 250 ml @ 250 mls/hr ONCE ONCE IV ; Start 05/01/16 at 02:00; Stop 05/01/16 at 02:07; Status DC Vancomycin HCl/ Sodium Chloride (Iv Sodium Chloride 0.9% 500ml Bag) 500 ml @ 250 mls/hr Q12H IV Last administered on 05/01/16 21:07; Start 05/01/16 at 10: 00; Stop 05/02/16 at 10:39; Status DC Vancomycin HCl 1 each 1 each 1X ONCE MC Last administered on 05/02/16 09:30; Start 05/02/16 at 09:30; Stop 05/02/16 at 09:31; Status DC Ampicillin Sodium/ Sulbactam Sodium/ Sodium Chloride (Unasyn/Iv Sodium Chloride 0.9% 100ml) 100 ml @ 200 mls/hr Q6HRS IV Last administered on 05/02/16 05:20 ; Start 05/01/16 at 11:00; Stop 05/02/16 at 09:38; Status DC Enoxaparin Sodium (Lovenox 40mg Syringe) 40 mg DAILY SQ Last administered on 09:53; Start 05/01/16 at 12:00 Aspirin 81 mg 81 mg [id number] PO Last administered on 05/02/16 09:53; Start 05/01/16 at 12:00 Piperacillin Sod/ Tazobactam Sod 3.375 gm/Sodium Chloride 50 ml @ 100 mls/hr Q6HRS IV Last administered on 05/02/16 11:54; Start 05/02/16 at 12:00 Vancomycin HCl/ Sodium Chloride (Iv Sodium Chloride 0.9% 500ml Bag) 500 ml @ 250 mls/hr Q8H IV Last administered on 05/02/16 12:44; Start 05/02/16 at 11:00 Ondansetron HCl (Zofran) 4 mg PRN Q6HRS PRN IV Nausea; Start 05/03/16 at 07:00 ; Stop 05/04/16 at 06:59 Fentanyl Citrate (Fentanyl 2ml Vial) 25 mcg PRN Q5MIN PRN IV MILD PAIN; Start 05/03/16 at 07:00; Stop 05/04/16 at 06:59 Fentanyl Citrate (Fentanyl 2ml Vial) 50 mcg PRN Q5MIN PRN IV MODERATE PAIN; Start 05/03/16 at 07:00; Stop 05/04/16 at 06:59 Morphine Sulfate 1 mg 1 mg PRN Q10MIN PRN IV SEVERE PAIN; Start 05/03/16 at 07: 00; Stop 05/04/16 at 06:59 Lactated Ringer's (Iv Lactated Ringers) 1,000 ml @ 0 mls/hr Q0M IV ; Start at 07:00; Stop 05/03/16 at 18:59 Lidocaine HCl 2 ml 1X PRN PRN ID IV START; Start 05/03/16 at 07:00; Stop at 06:59 Hydromorphone HCl (Dilaudid) 0.5 mg PRN Q10MIN PRN IV SEVERE PAIN, Second choice; Start 05/03/16 at 07:00; Stop 05/04/16 at 06:59 Prochlorperazine Edisylate (Compazine) 5 mg PACU PRN PRN IV NAUSEA; Start 05/03 at 07:00; Stop 05/04/16 at 06:59 Allergies Allergies: Coded Allergies: No Known Medication Allergies (Verified Allergy, Unknown, 05/01/16) ROS General: No: Chills, Fatigue, Malaise, Night Sweats HEENT: No: Heacaches, Nasal congestion, Nasal discharge, Oral lesions ALLERGY AND IMMUNOLOGY: YES: Other (Red, raised rash over entire body that is sore and itching. Onset 24 hours ago.) Hematological and Lymphatic: No: Bleeding Problems, Blood Clots, Swollen Lymph Nodes Respiratory: No: Cough, Pleuritic Pain, SOB with excertion, Shortness of breath , Wheezing Cardiovascular: yes Edema (Left lower extremity), No Chest Pain, No Palpitations Gastrointestinal: No Abdominal Pain, No Constipation, No Diarrhea, No Nausea, No Vomiting Genitourinary: No Dysuria, No Frequency, No Hematuria, No Urgency Musculoskeletal: Yes Joint Pain, Yes Joint Swelling, Yes Pain In: (Left lower extremity), Yes Swelling In: (Left lower extremity) Skin: Yes Other (Fluid filled blisters with serous drainage on left lower extremity.), Yes Pruritus, Yes Rash, Yes Skin Lesion Changes Physical Exam General: Alert, Oriented X3, Cooperative, mild distress HEENT: Atraumatic, PERRLA, Mucous membr. moist/pink Lungs: Clear to auscultation, Normal air movement Heart: Regular rate, Normal S1, Normal S2, No murmurs Abdomen: Soft, Other (Rounded) Extremities: Normal pulses, Other (Palpable bilateral radial, femoral and right dorsalis pedal and post tibial pulses. Doppled left dorsalis pedal and post tibial pulses. Significant swelling in LLE.) Skin: Other (Red, raised rash noted from head to toes and has progressed rapidly since admission.) MUSCULOSKELETAL: Abnormal passive ROM of (left knee.) Vitals VITALS Vital Signs Date Time Temp Pulse Resp B/P Pulse Ox O2 Delivery O2 Flow Rate FiO2 05/02/16 11:08 97.7 113 18 121/64 100 Room Air 97.7 Labs Labs Laboratory Tests Test 05/01/16 04:45 05/02/16 10:00 White Blood Count 17.5x10^3/uL (4.0-11.0) 26.4x10^3/uL (4.0-11.0) Red Blood Count 3.47x10^6/uL (3.50-5.40) 3.87x10^6/uL (3.50-5.40) Hemoglobin 9.8g/dL (12.0-15.5) 11.0g/dL (12.0-15.5) Hematocrit 29.7% (36.0-47.0) 32.4% (36.0-47.0) Mean Corpuscular Volume 86fL (79-100) 84fL (79-100) Mean Corpuscular Hemoglobin 28pg (25-35) 28pg (25-35) Mean Corpuscular Hemoglobin Concent 33g/dL (31-37) 34g/dL (31-37) Red Cell Distribution Width 13.9% (11.5-14.5) 13.7% (11.5-14.5) Platelet Count 236x10^3/uL (140-400) 279x10^3/uL (140-400) Neutrophils (%) (Auto) 81% (31-73) 88% (31-73) Lymphocytes (%) (Auto) 11% (24-48) 7% (24-48) Monocytes (%) (Auto) 6% (0-9) 4% (0-9) Eosinophils (%) (Auto) 1% (0-3) 1% (0-3) Basophils (%) (Auto) 1% (0-3) 0% (0-3) Neutrophils # (Auto) 14.1x10^3uL (1.8-7.7) 23.2x10^3uL (1.8-7.7) Lymphocytes # (Auto) 2.0x10^3/uL (1.0-4.8) 1.8x10^3/uL (1.0-4.8) Monocytes # (Auto) 1.0x10^3/uL (0.0-1.1) 1.0x10^3/uL (0.0-1.1) Eosinophils # (Auto) 0.3x10^3/uL (0.0-0.7) 0.3x10^3/uL (0.0-0.7) Basophils # (Auto) 0.1x10^3/uL (0.0-0.2) 0.1x10^3/uL (0.0-0.2) Segmented Neutrophils % 80% (35-66) 79% (35-66) Band Neutrophils % 7% (0-9) 12% (0-9) Lymphocytes % 9% (24-48) 5% (24-48) Monocytes % 2% (0-10) 1% (0-10) Eosinophils % 2% (0-5) 3% (0-5) Platelet Estimate Adequate (ADEQUATE) Adequate (ADEQUATE) Erythrocyte Sedimentation Rate 67 (0-25) Sodium Level 139mmol/L (136-145) 137mmol/L (136-145) Potassium Level 3.6mmol/L (3.5-5.1) 3.7mmol/L (3.5-5.1) Chloride Level 105mmol/L (98-107) 105mmol/L (98-107) Carbon Dioxide Level 25mmol/L (21-32) 22mmol/L (21-32) Anion Gap 9 (6-14) 10 (6-14) Blood Urea Nitrogen 5mg/dL (7-20) 4mg/dL (7-20) Creatinine 0.5mg/dL (0.6-1.0) 0.7mg/dL (0.6-1.0) Estimated GFR (Cockcroft-Gault) 144.9 98.3 Glucose Level 91mg/dL (70-99) 123mg/dL (70-99) Calcium Level 8.1mg/dL (8.5-10.1) 8.1mg/dL (8.5-10.1) Vancomycin Level Trough 6.5mcg/mL (10.0-20.0) Vancomycin Last Dose Date 05/01/16 Vancomycin Last Dose Time 2200 Laboratory Tests Test 05/02/16 10:00 White Blood Count 26.4x10^3/uL (4.0-11.0) Red Blood Count 3.87x10^6/uL (3.50-5.40) Hemoglobin 11.0g/dL (12.0-15.5) Hematocrit 32.4% (36.0-47.0) Mean Corpuscular Volume 84fL (79-100) Mean Corpuscular Hemoglobin 28pg (25-35) Mean Corpuscular Hemoglobin Concent 34g/dL (31-37) Red Cell Distribution Width 13.7% (11.5-14.5) Platelet Count 279x10^3/uL (140-400) Neutrophils (%) (Auto) 88% (31-73) Lymphocytes (%) (Auto) 7% (24-48) Monocytes (%) (Auto) 4% (0-9) Eosinophils (%) (Auto) 1% (0-3) Basophils (%) (Auto) 0% (0-3) Neutrophils # (Auto) 23.2x10^3uL (1.8-7.7) Lymphocytes # (Auto) 1.8x10^3/uL (1.0-4.8) Monocytes # (Auto) 1.0x10^3/uL (0.0-1.1) Eosinophils # (Auto) 0.3x10^3/uL (0.0-0.7) Basophils # (Auto) 0.1x10^3/uL (0.0-0.2) Segmented Neutrophils % 79% (35-66) Band Neutrophils % 12% (0-9) Lymphocytes % 5% (24-48) Monocytes % 1% (0-10) Eosinophils % 3% (0-5) Platelet Estimate Adequate (ADEQUATE) Sodium Level 137mmol/L (136-145) Potassium Level 3.7mmol/L (3.5-5.1) Chloride Level 105mmol/L (98-107) Carbon Dioxide Level 22mmol/L (21-32) Anion Gap 10 (6-14) Blood Urea Nitrogen 4mg/dL (7-20) Creatinine 0.7mg/dL (0.6-1.0) Estimated GFR (Cockcroft-Gault) 98.3 Glucose Level 123mg/dL (70-99) Calcium Level 8.1mg/dL (8.5-10.1) Vancomycin Level Trough 6.5mcg/mL (10.0-20.0) Vancomycin Last Dose Date 05/01/16 Vancomycin Last Dose Time 2200 Images Images EXAM: Left lower extremity arterial Doppler sonogram. FINDINGS: There is an elevated peak systolic velocity of 269 cm/s within the right common femoral artery, suggesting hemodynamically significant stenosis. There are monophasic waveforms distal to the common femoral artery from the proximal superficial femoral artery to the dorsalis pedis artery, likely due to proximal stenosis. The peak systolic velocities distal to the common femoral artery measure 66 cm/s within the deep femoral artery, 182 cm/s within the proximal superficial femoral artery, 156 cm/s within the mid superficial femoral artery, 142 cm/s within the distal superficial femoral artery, 171 cm/s within the popliteal artery, 147 cm/s within the posterior tibial artery, 80 cm/s within the anterior tibial artery, and 115 cm/s within the dorsalis pedis artery. The peroneal artery is not seen. IMPRESSION: 1. Elevated peak systolic velocity within the left common femoral artery suggesting hemodynamically significant stenosis. There are corresponding monophasic waveforms distal to this vessel from the proximal superficial femoral artery to the dorsalis pedis artery. 2. Nonvisualization of the peroneal artery. This may be due to study limitations in the setting of surrounding soft tissue edema or vessel occlusion. EXAM: Left lower extremity venous Doppler sonogram. FINDINGS: There is catheter edema possibly due to cellulitis. The peroneal veins are obscured. There is normal color flow, normal compressibility and there are normal spectral waveforms within the remainder of the left lower 70 veins. There are prominent lymph nodes within the right inguinal region, likely reactive given a history of a left knee abscess. IMPRESSION: Obscured peroneal veins due to calf edema. There is no evidence of venous thrombosis within the remainder of the left lower extremity veins. Assessment/Plan Assessment/Plan 1. Cellulitis of the left lower extremity with possible abscess of the left knee. Intravenous antibiotics have been started by Infectious Disease. Results of the I&D of the left knee are pending and ID is attempting to obtain the results. The left lower leg drainage has been cultured. Based upon the history obtained from the patient and nursing, the appearance of the cellulitis and rash has worsen rapidly despite IV antibiotics. The arterial doppler results and physical exam do not indicate significant arterial obstructive disease as a cause for cellulitis. I have spoke with Dr. Small and Dr. Lopez. At this time, the patient is scheduled to undergo debridement of the left lower extremity in the OR tomorrow with possible tissue biopsy and cultures if needed. 2. Tobacco abuse. The patient was educated on the need for immediate smoking cessation. She verbalized the desire to stop smoking. 3. . treatment is being provided. 4. History of IV drug abuse. Thank you for the opportunity to participate in the care of this most interesting case. Dr. Lopez has been informed of the patient's current status and arterial doppler results. The patient will have surgical wound debridement in the operating room tomorrow by Dr. Ela Holly or an associate. Additional recommendation will be provided at that time as needed. DOC LOPEZ II, MD 05/02/16 1830: CONSULT Allergies Allergies: Coded Allergies: No Known Medication Allergies (Verified Allergy, Unknown, 05/01/16) Assessment/Plan Assessment/Plan I have examined the patient and reviewed all imaging studies and lab. My impression is that the patient has a diffuse infectious inflammatory process with necrotizing ulcers. She does not have significant arterial or venous disease. My opinion is that she would be best treated at a tertiary care facility with combination of specialists including infectious disease, plastic surgery, obstetrics. I discussed my concerns with the patient and her mother and they agree with the transfer. Those arrangements are ongoing. KATALINA ANGEL APRN May 02, 2016 14:01 DOC LOPEZ II, MD May 02, 2016 18:30
[2016-05-02 14:58] VITALS: BP 123/70
[2016-05-02] MEDS: DIPHENHYDRAMINE 50 MG/ML VIAL IVP PRN (18:27)
[2016-05-03] MEDS ORDERED: FENTANYL PF 100 MCG/2 ML VIAL. IV PRN ×2 (07:00)
[2016-05-03] MEDS ORDERED: MORPHINE SULFATE 2 MG/ML DISP.SYRIN. IV PRN (07:00)
[2016-05-03] MEDS ORDERED: LIDOCAINE 1% 1 ML SYRINGE. ID PRN (07:00)
[2016-05-03] MEDS ORDERED: IV RINGERS,LACTATED 1000ML 1,000 ML IV SCH (07:00)
[2016-05-03] MEDS ORDERED: ONDANSETRON PF 4 MG/2 ML VIAL. IV PRN (07:00)
[2016-05-03] MEDS ORDERED: PROCHLORPERAZINE 10 MG/2 ML VIAL. IV PRN (07:00)
[2016-05-03] MEDS ORDERED: HYDROMORPHONE 2 MG/ML VIAL. IV PRN (07:00)
== END 2016-05-02 19:30 | disposition short-term general hospital (02) | DRG 781 ==
LOC: 5 NORTH 22:23
PROVIDERS: ADMIT Internal Medicine; ATTEND Internal Medicine
DX: O98.811 Other maternal infectious and parasitic diseases complicating pregnancy, first trimester (principal); L03.116 Cellulitis of left lower limb; L02.416 Cutaneous abscess of left lower limb; M71.9 Bursopathy, unspecified; F17.210 Nicotine dependence, cigarettes, uncomplicated; O99.331 Smoking (tobacco) complicating pregnancy, first trimester; Z3A.08 8 weeks gestation of pregnancy
CPT/HCPCS: 36415; 80048; 80202; 85007; 85027; 85651; 87071; 87075; 87205; 93926; 93971; J0295; J1200; J1650; J2543; J3370; J3490; J7030; J7040